=== PATIENT | female | born 1995 | race Caucasian/White ===

== ENCOUNTER 2023-01-17 10:45 | Emergency (ER) | payer OTHER ==
[~2023-01-17] VITALS: Ht 154.9 cm; Wt 58.1 kg
[2023-01-17 11:06] VITALS: BP 99/68; PULSE 76; RESP 16; TEMP 98.2; O2SAT 98
[2023-01-17 11:30] LABS: BASOPHILS % 0.7 % (0.0-2.0); HEMATOCRIT. 43.6 % (36.0-48.0); HEMOGLOBIN. 14.9 g/dL (12.0-16.0); LYMPHOCYTES % 33.5 % (20.0-50.0); MEAN CORPUSCULAR HEMOGLOBIN 31.2 pg (28.0-32.0); MEAN CORPUSCULAR HGB CONC 34.1 g/dL (31.0-37.0); MEAN CORPUSCULAR VOLUME 91.5 fL (81.0-99.0); MEAN PLATELET VOLUME 8.4 fl (7.4-10.4); MONOCYTES % 8.1 % (2.0-8.0); NEUTROPHILS % 54.7 % (40.0-76.0); PLATELET 277 x1000/uL (130-400); RED BLOOD CELL COUNT 4.77 mill/uL (4.2-5.4); RED CELL DISTRIBUTION WIDTH 13.1 % (11.6-14.6); WHITE BLOOD COUNT 6.8 x1000/uL (4.5-11.0)
[2023-01-17 11:42] LABS: HCG SCREEN NEGATIVE
[2023-01-17 11:43] LABS: CHLORIDE 108 mEq/L (98-107); INDEX HEMOLYSI 1 (1-3); INDEX ICTERIC 1 (1-4); INDEX LIPEMIC 1 (1-3); POTASSIUM 4.3 mEq/L (3.5-5.1); SODIUM 138 mEq/L (136-145)
[2023-01-17 11:50] LABS: ALANINE AMINOTRANSFERASE 31 IU/L (13-61); ALBUMIN 4.2 g/dL (3.4-5.0); ASPARTATE AMINOTRANSFERASE 16 IU/L (15-37); BILIRUBIN TOTAL 0.3 mg/dL (0.1-1.0); CARBON DIOXIDE 30 mEq/L (21-32); CREATININE 0.5 mg/dL (0.6-1.3); GLUCOSE 102 mg/dL (70-105); PROTEIN TOTAL 8.4 g/dL (6.0-8.3); UREA NITROGEN BLOOD 6 mg/dL (7-21)
[2023-01-17 14:09] LABS: CLARITY URINE CLOUDY (CLEAR); COLOR URINE YELLOW (YELLOW); GLUCOSE URINE NEGATIVE (NEGATIVE); KETONES URINE NEGATIVE (NEGATIVE); LEUKOCYTE ESTERASE URINE NEGATIVE (NEGATIVE); NITRITE URINE NEGATIVE (NEGATIVE); OCCULT BLOOD URINE NEGATIVE (NEGATIVE); PH URINE 7.5 (4.5-8.0); PROTEIN URINE NEGATIVE (NEGATIVE); SPECIFIC GRAVITY URINE 1.016 (1.005-1.030)
[2023-01-17 14:13] LABS: BACTERIA URINE 2+; SQUAMOUS EPITHELIAL CELL URINE 1+ /lpf (RARE/1+); WBC URINE 0-2 /hpf (0-2); YEAST URINE NONE SEEN
[2023-01-17 18:06] LABS: MUCUS URINE 2+ /lpf (< = 2+)
[2023-01-17 18:07] LABS: RBC URINE 0-2 /hpf (0-2)
== END 2023-01-17 15:22 | disposition home or self-care (01) ==
LOC: ER 10:45
DX: N64.52 Nipple discharge (principal)
CPT/HCPCS: 36415; 80053; 81003; 84703; 85025; 99283